=== PATIENT | male | born 1985 | race Caucasian/White ===

== ENCOUNTER 2018-05-23 08:55 | Emergency (ER) | payer OTHER ==
[~2018-05-23] VITALS: Ht 167.6 cm; Wt 97.2 kg
[~2018-05-23 08:55] MED LIST: ACET325T33 PO; HYDR-3980 PO; IBUP-1542 PO; LOPE2CAP PO; ONDA4TAB8 PO
[2018-05-23 08:59] VITALS: BP 133/71; PULSE 123; RESP 20; Ht 167.6 cm; Wt 97.2 kg
[2018-05-23] MEDS ORDERED: ACETAMINOPHEN 500 MG TAB PO STA (10:23)
[2018-05-23] MEDS ORDERED: IBUPROFEN 800 MG TAB PO ONE (10:30)
--- NOTE | 2018-05-23 10:48 | ERD ---
ER Documentation Chief Complaint Chief Complaint Complains of flu-like symptoms with back pain x 3 days HPI This is a 32-year-old male with a nonsignificant past medical history presents ED with flulike symptoms for the past 3 days. Admits to fever, body aches and sore throat and mild headache. Denies runny nose, ear pain, nausea, vomiting, diarrhea, constipation, abdominal pain, cough, shortness breath, trouble breathing all other symptoms. No known drug allergies. Did not have a flu shot this year. No sick contact or recent travel ROS All systems reviewed and are negative except as per history of present illness. Medications Home Meds Active Scripts Loperamide Hcl* (Imodium*) 2 Mg Capsule, 2 MG PO .AFTER EA LOOSE BM PRN for DIARRHEA, #8 TAB Prov:CHARY HOLLINS PA-C 12/13/15 Hydrocodone/Acetaminophen ([place] 10-325 Tablet) 1 Each Tablet, 1 TAB PO Q6H PRN for PAIN, #12 TAB Prov:CHARY HOLLINS PA-C 12/13/15 Ondansetron Hcl* (Zofran*) 4 Mg Tablet, 4 MG PO Q6H for NAUSEA AND/OR VOMITING, #30 TAB Prov:CHARY HOLLINS PA-C 12/13/15 Acetaminophen* (Tylenol*) 325 Mg Tablet, 2 TAB PO Q8 PRN for PAIN AND OR ELEVATED TEMP, #20 TAB Prov:KIEL DOMÍNGUEZ MD 12/12/15 Ibuprofen* (Motrin*) 600 Mg Tab, 600 MG PO Q6H PRN for PAIN AND OR ELEVATED TEMP, #30 TAB Prov:KIEL DOMÍNGUEZ MD 12/12/15 Allergies Allergies: Coded Allergies: No Known Allergy (Unverified , 12/12/15) PMhx/Soc History of Surgery: Yes (CHOLECYSTECTOMY) Hx Alcohol Use: No Hx Substance Use: No Hx Tobacco Use: No FmHx Family History: No diabetes Physical Exam Vitals Vital Signs Date Temp Pulse Resp B/P (MAP) Pulse Ox O2 O2 Flow FiO2 Time Delivery Rate 05/23/18 101.6 10:47 05/23/18 101.6 123 20 133/71 99 08:59 (91) Physical Exam Physical Exam Vitals signs: Reviewed by me. General: Well developed, well nourished, in no acute distress. Patient is awake and alert. Head: Normocephalic, atraumatic. Eyes: Normal conjunctiva, Pupils PERRLA, EOM intact grossly ENT: Pharynx is clear, Moist mucous membranes, external ears, nose and mouth normal, tympanic membrane visualized bilaterally no bulging, erythema, purulent air-fluid line seen, oropharynx is remarkable for some mild erythema and mild tonsillar adenopathy, no exudate, no kissing tonsils or uvula deviation, normal nasal mucosa Neck: Supple, no masses, lymphadenopathy or JVD Respiratory: Clear to auscultation bilaterally with no wheezing, rhonchi, rales, no distress Cardiovascular: RRR, no murmurs, rubs, or gallops Back: No midline tenderness. No flank tenderness Neurologic: Alert and oriented, moving all extremities, normal speech, no focal weakness, no cerebellar signs. Normal mentation Skin: warm and dry, No rash Psych: Normal mood Results 24 hrs Current Medications Medications Dose Sig/Loc Start Time Status Last (Trade) Ordered Route PRN Stop Time Admin Dose Reason Admin Ibuprofen 800 mg ONCE ONCE 05/23/18 DC 05/23/18 (Motrin) PO 10:30 10:47 05/23/18 10:31 1,000 mg ONCE STAT 05/23/18 DC 05/23/18 Acetaminophen PO 10:23 10:47 (Tylenol 05/23/18 10:26 Tab) Procedures/MDM LAB INTERPRETATION: flu negative strep neg ER COURSE: The patient was given Tylenol and ibuprofen The medication was well tolerated and the patient reports improvement in symptoms. The patient was stable throughout ED course. I kept the patient and/or family informed of laboratory and diagnostic imaging results throughout the emergency room course. The patient was promptly evaluated and a treatment plan was devised based on H&P and other data. This plan was discussed with the patient who agreed and had no further questions or concerns prior to discharge. MEDICAL DECISION MAKING: This is a 32-year-old male who presents ED with flulike symptoms for the past 3 days. The patient's clinical presentation is very consistent with an influenza. No evidence of pneumonia. The patient is well-appearing without respiratory distress. Normal oxygen saturation. X-ray imaging not indicated The patient does not exhibit any clinical signs or symptoms concerning for serious bacterial infection or systemic illness. Based on history and clinical exam findings the patient does not appear to have evidence of pneumonia, strep pharyngitis, urinary tract infection, bacteremia, sepsis, or meningitis. For these reasons I do not believe it is necessary to obtain further laboratory testing or diagnostic imaging. I believe it would be appropriate for symptom control, and close outpatient primary care follow-up. We discussed follow up with the patient's primary care doctor within 24 to 48 hours as needed. We also discussed return to the emergency room for worsening symptoms or worsening condition. DISPOSITION PLAN: We discussed follow up with the patient's primary care doctor within 24 to 48 hours. Patient counseled regarding my diagnostic impression and care plan. Pr ior to discharge all questions answered. Pt agrees with treatment plan and understands strict return precautions. Precautionary instructions provided including instructions to return to the ER if not improving or for any worsening or changing symptoms or concerns. SPECIALIST FOLLOW UP RECOMMENDED: None Patient has been advised to follow up with primary care in 1-2 days. Disclaimer: Inadvertent spelling and grammatical errors are likely due to EHR/dictation software use and do not reflect on the overall quality of patient care. Also, please note that the electronic time recorded on this note does not necessarily reflect the actual time of the patient encounter. Blood Pressure Assessment: Patient's blood pressure was elevated (>120/80) but appears stable without evidence of hypertension emergency or urgency. The patient was counseled about the risks of hypertension and urged to pursue outpatient monitoring and therapy within a week with their primary care physician. Departure Diagnosis: Primary Impression: Influenza Condition: Stable Patient Instructions: Influenza (Adult) [facility] Additional Instructions: Paciente aconseja volver a Departamento de urgencias inmediatamente para sntomas nuevos o que empeoran . Paciente aconseja posteriores con el PCP en 1-2 womack . Paciente verbaliza la comprehensin y est de acuerdo con el tratamiento y el curso de accin. Si el paciente no tiene ninguna de atencin primaria pueden seguir con [facility] [address] [place] [address] [address] FORTUNATO WATKINS PA-C May 23, 2018 10:48
[2018-05-23] MEDS ORDERED: OSEL75CA23 PO (11:30)
[2018-05-23] MEDS ORDERED: IBUP-1542 PO (11:30)
== END 2018-05-23 11:44 | disposition home or self-care (01) ==
LOC: FTE 08:55
DX: J11.1 Influenza due to unidentified influenza virus with other respiratory manifestations (principal)
CPT/HCPCS: 87400; 87880; 99283